=== PATIENT | female | born 2000 | race Two or more races ===

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

== ENCOUNTER 2023-09-03 12:33 | Emergency (ER) | payer OTHER ==
[2023-09-03 12:41] VITALS: BP 108/64; PULSE 85; RESP 20; TEMP 98; BMI 31.5
[2023-09-03] MEDS ORDERED: ACETAMINOPHEN 1000 MG/100 ML BAG IVPB ONE (13:31)
[2023-09-03] MEDS ORDERED: ONDANSETRON 4 MG/2 ML VIAL IVPB ONE (13:31)
[2023-09-03] MEDS ORDERED: FAMOTIDINE 20 MG/50 ML IVPB 20 MG/50 ML MG IVPB ONE ×2 (13:31→13:36)
[2023-09-03] MEDS ORDERED: ONDANSETRON 4 MG/2 ML VIAL ONE (13:36)
[2023-09-03] MEDS ORDERED: ACETAMINOPHEN INJECTION 100 ML IVPB ONE (13:36)
[2023-09-03 14:33] LABS: BASO % 0.6 % (0-2.0); EOS % 0.8 % (0-4.5); HEMATOCRIT 39.7 % (32.4-45.2); HEMOGLOBIN 13.3 GM/dL (10.7-15.3); LYMPH % 29.3 % (8-40); MCH 28.6 pg (25.7-33.7); MCHC 33.6 g/dl (32.0-36.0); MEAN PLT VOLUME 8.2 fl (7.5-11.1); MONO % 4.8 % (3.8-10.2); NEUT % 64.5 % (42.8-82.8); PLATELET COUNT 304 10^3/uL (134-434); RBC 4.66 M/mm3 (3.60-5.2); RDW 13.1 % (11.6-15.6); WHITE BLOOD COUNT 12.7 K/mm3 (4.0-10.0)
[2023-09-03 14:34] LABS: PH,URINE 6.5 (5.0-8.0); URINE APPEARANCE CLEAR; URINE BILIRUBIN NEGATIVE (NEGATIVE); URINE COLOR YELLOW; URINE GLUCOSE (UA) NEGATIVE (NEGATIVE); URINE KETONE NEGATIVE (NEGATIVE); URINE LEUK ESTERASE NEGATIVE (NEGATIVE); URINE NITRITE NEGATIVE (NEGATIVE); URINE PROTEIN NEGATIVE (NEGATIVE); URINE UROBILINOGEN 0.2 mg/dL (0.2-1.0)
[2023-09-03 15:02] LABS: POTASSIUM 4.5 mmol/L (3.5-5.1)
[2023-09-03 15:04] LABS: ALBUMIN 3.6 g/dl (3.4-5.0); CALCIUM 9.4 mg/dL (8.5-10.1)
[2023-09-03 15:05] LABS: BLOOD UREA NITROGEN 14.1 mg/dL (7-18); MAGNESIUM 1.9 mg/dL (1.8-2.4)
[2023-09-03 15:07] LABS: CREATININE 0.7 mg/dL (0.55-1.3)
[2023-09-03 15:09] LABS: BILIRUBIN,TOTAL 0.2 mg/dL (0.2-1); TOT PROT 7.6 g/dl (6.4-8.2)
== END 2023-09-03 17:02 | disposition home or self-care (01) ==
LOC: JER 12:33
PROC: 3E033GC Introduction of Other Therapeutic Substance into Peripheral Vein, Percutaneous Approach (ICD-10-PCS; principal; 2023-09-03)
PROC: 3E033NZ Introduction of Analgesics, Hypnotics, Sedatives into Peripheral Vein, Percutaneous Approach (ICD-10-PCS; 2023-09-03)
PROC: 3E033GC Introduction of Other Therapeutic Substance into Peripheral Vein, Percutaneous Approach (ICD-10-PCS; 2023-09-03)
DX: R10.84 Generalized abdominal pain (principal); K52.9 Noninfective gastroenteritis and colitis, unspecified; R11.2 Nausea with vomiting, unspecified
CPT/HCPCS: 36415; 74177-TC; 80053; 81003; 83690; 83735; 84703; 85025; 87086; 99285-25; Q9967

== ENCOUNTER 2024-02-04 10:59 | Emergency (ER) | payer OTHER ==
[2024-02-04 11:15] VITALS: BP 125/62; PULSE 77; RESP 16; TEMP 98.6; BMI 25.8
[2024-02-04] MEDS ORDERED: ONDANSETRON *ODT* 4 MG TABLET ONE (12:09)
[2024-02-04] MEDS ORDERED: ACETAMINOPHEN 325 MG TABLET (FP) ONE (12:09)
[2024-02-04] MEDS: ACETAMINOPHEN 500 MG TABLET (FP) PO ONE (12:18)
[2024-02-04] MEDS: ONDANSETRON *ODT* 4 MG TABLET SL ONE (12:18)
[2024-02-04] MEDS ORDERED: LIDOCAINE 4% PATCH TP ONE (14:45)
[2024-02-04] MEDS ORDERED: KETOROLAC TROMETHAMINE 30 MG/1 ML VIAL ONE (14:45)
[2024-02-04] MEDS: LIDOCAINE 4% PATCH TP ONE (14:58)
[2024-02-04] MEDS: KETOROLAC TROMETHAMINE 30 MG/1 ML VIAL IM ONE (14:59)
[2024-02-04] MEDS ORDERED: LIDOCAINE PATCH REMOVAL MC SCH (22:00)
== END 2024-02-04 15:02 | disposition home or self-care (01) ==
LOC: JER 10:59
PROC: 3E0333Z Introduction of Anti-inflammatory into Peripheral Vein, Percutaneous Approach (ICD-10-PCS; principal; 2024-02-04)
DX: R11.2 Nausea with vomiting, unspecified (principal); B34.9 Viral infection, unspecified; R10.9 Unspecified abdominal pain; R19.7 Diarrhea, unspecified; R07.9 Chest pain, unspecified; R50.9 Fever, unspecified; Z20.822 Contact with and (suspected) exposure to COVID-19
CPT/HCPCS: 0241U-QW; 84703; 93005; 93010; 96374; 99284-25; Q0162

== ENCOUNTER 2024-06-09 18:59 | Emergency (ER) | payer OTHER ==
[2024-06-09 19:13] VITALS: BP 120/86; RESP 18; BMI 31.3
[2024-06-09] MEDS ORDERED: IBUPROFEN 400 MG TABLET (FP) PO ONE ×2 (19:33→19:35)
[2024-06-09] MEDS ORDERED: ACETAMINOPHEN INJECTION 100 ML IVPB ONE (19:49)
[2024-06-09] MEDS ORDERED: KETOROLAC TROMETHAMINE 30 MG/1 ML VIAL ONE (19:49)
[2024-06-09] MEDS ORDERED: METOCLOPRAMIDE HCL INJECTION 10 MG/2 ML VIAL ONE (19:49)
[2024-06-09 19:54] LABS: BASO % 0.3 % (0-2.0); EOS % 0.1 % (0-4.5); HEMATOCRIT 38.9 % (32.4-45.2); HEMOGLOBIN 13.1 GM/dL (10.7-15.3); LYMPH % 7.8 % (8-40); MCHC 33.7 g/dl (32.0-36.0); MEAN CELL VOLUME 86.1 fl (80-96); MEAN PLT VOLUME 7.7 fl (7.5-11.1); MONO % 5.8 % (3.8-10.2); PLATELET COUNT 271 10^3/uL (134-434); RBC 4.51 M/mm3 (3.60-5.2); RDW 13.2 % (11.6-15.6); WHITE BLOOD COUNT 8.9 K/mm3 (4.0-10.0)
[2024-06-09] MEDS: KETOROLAC TROMETHAMINE 30 MG/1 ML VIAL IVPUSH ONE (20:01)
[2024-06-09] MEDS: METOCLOPRAMIDE HCL INJECTION 10 MG/2 ML VIAL IVPUSH ONE (20:01)
[2024-06-09] MEDS: ACETAMINOPHEN 1000 MG/100 ML BAG IVPB ONE (20:01)
[2024-06-09] MEDS: SODIUM CHLORIDE 0.9% 500 ML INFUS.BAG IV ONE (20:01)
[2024-06-09 20:49] LABS: BLOOD UREA NITROGEN 7.9 mg/dL (7-18); CALCIUM 9.4 mg/dL (8.5-10.1)
[2024-06-09 20:51] LABS: ALBUMIN 3.9 g/dl (3.4-5.0)
[2024-06-09 20:54] LABS: BILIRUBIN,TOTAL 0.2 mg/dL (0.2-1); CREATININE 0.8 mg/dL (0.55-1.3)
[2024-06-09 21:12] VITALS: PULSE 102; TEMP 99.3
== END 2024-06-09 21:24 | disposition home or self-care (01) ==
LOC: JERFT 18:59 → JER 18:59 → JERFT 21:24
PROC: 3E033NZ Introduction of Analgesics, Hypnotics, Sedatives into Peripheral Vein, Percutaneous Approach (ICD-10-PCS; principal; 2024-06-09)
PROC: 3E0333Z Introduction of Anti-inflammatory into Peripheral Vein, Percutaneous Approach (ICD-10-PCS; 2024-06-09)
PROC: 3E033GC Introduction of Other Therapeutic Substance into Peripheral Vein, Percutaneous Approach (ICD-10-PCS; 2024-06-09)
DX: J32.9 Chronic sinusitis, unspecified (principal); R50.9 Fever, unspecified; R11.2 Nausea with vomiting, unspecified; R10.9 Unspecified abdominal pain; Z20.822 Contact with and (suspected) exposure to COVID-19
CPT/HCPCS: 0241U-QW; 36415; 80053; 84703; 85025; 96374; 96375; 99284-25; J0131